=== PATIENT | male | born 1945 | race Two or more races ===

== ENCOUNTER 2017-12-02 07:19 | Emergency (ER) | payer OTHER ==
[2017-12-02 07:52] VITALS: BP 148/91; PULSE 84; TEMP 99; BMI 18.7
--- NOTE | 2017-12-02 08:05 | PDOC ---
History of Present Illness - General Chief Complaint: Cold Symptoms Stated Complaint: DIFFICULTY BREATHING/HEADACHE Time Seen by Provider: 12/02/17 07:55 History Source: Patient - History of Present Illness Initial Comments: 12/02/17 08:04 Patient is a 72 y.o. male with a PMH of NIDDM and HTN who presents to our ED today c/o 2 day h/o non-productive cough, subjective fever and sore throat. Patient denies any associated chest pain, shortness of breath, nausea/vomiting or diarrhea/constipation. Patient further denies any recent travel or sick contacts. Patient notes he received the flu shot in October 2016. Past History - Past Medical History Allergies/Adverse Reactions: Allergies Allergy/AdvReac Type Severity Reaction Status Date / Time No Known Allergies Allergy Verified 12/02/17 07:48 Home Medications: Ambulatory Orders Captopril [Capoten] 25 mg PO DAILY 10/25/12 Hydrochlorothiazide [Hctz] 5 mg PO DAILY 10/25/12 Levofloxacin [Levaquin] 500 mg PO DAILY #7 tablet 10/25/12 Metformin HCl [Glucophage] 1,000 mg PO BID 10/25/12 Acetaminophen [Tylenol .Regular Strength -] 650 mg PO Q6H #30 tablet 12/19/12 Albuterol Sulfate Inhaler - [Ventolin HFA Inhaler -] 1 - 2 inh IH Q4H #1 inhaler 12/19/12 Cefdinir [Omnicef] 300 mg PO BID #20 capsule 12/19/12 Oseltamivir Phosphate [Tamiflu] 75 mg PO BID #10 capsule 12/19/12 COPD: No Diabetes: Yes HTN: Yes Hypercholesterolemia: Yes - Surgical History Abdominal Surgery: Yes (kidney) - Immunization History Immunization Up to Date: Yes - Suicide/Smoking/Psychosocial Hx Smoking Status: No Smoking History: Never smoked Have you smoked in the past 12 months: No Number of Cigarettes Smoked Daily: 0 Information on smoking cessation initiated: No Hx Alcohol Use: No Drug/Substance Use Hx: No Substance Use Type: None Review of Systems - Review of Systems Constitutional: Yes: Chills, Fever HEENTM: No: Blurred Vision, Double Vision Respiratory: Yes: Cough. No: Shortness of Breath, Wheezing, Productive cough Cardiac (ROS): No: Chest Pain, Palpitations ABD/GI: No: Constipated, Diarrhea : No: Burning, Dysuria All Other Systems: Reviewed and Negative *Physical Exam - Vital Signs Last Vital Signs Temp Pulse Resp BP Pulse Ox 99.0 F 84 17 148/91 100 12/02/17 07:49 12/02/17 07:49 12/02/17 07:49 12/02/17 07:49 12/02/17 07:49 - Physical Exam General Appearance: Yes: Nourished, Appropriately Dressed HEENT: positive: EOMI, SAMREEN. negative: Nasal Congestion, Rhinorrhea, TM Dull, TM Erythema Neck: positive: Trachea midline, Supple Respiratory/Chest: positive: Lungs Clear, Normal Breath Sounds. negative: Labored Respiration, Rapid RR Cardiovascular: positive: S1, S2 Gastrointestinal/Abdominal: positive: Normal Bowel Sounds, Soft Extremity: positive: Normal Capillary Refill, Normal Inspection Integumentary: positive: Normal Color, Dry, Warm Neurologic: positive: Fully Oriented, Alert Medical Decision Making - Medical Decision Making 12/02/17 08:07 Patient is a 72 y.o. male who presents with a 2 day h/o sore throat/subjective fever/non-productive cough. Clinical suspicion for viral URI vs. strep pharyngitis vs. influenza. PLAN: 1. Rapid Strep + Rapid Influenza 12/02/17 09:18 Strep (-), Influenza (-). Patient's sign's and symptoms improved with Tylenol. Patient to be discharged home with return precautions and instruction for supportive care. *DC/Admit/Observation/Transfer Diagnosis at time of Disposition: Viral URI - Discharge Dispostion Disposition: HOME Condition at time of disposition: Good - Referrals - Patient Instructions Printed Discharge Instructions: DI for Viral Upper Respiratory Infection -- Adult Additional Instructions: You can use Tylenol for pain control. Please increase your fluid intake and return to the Emergency Department for any new/worsening/concerning symptoms. - Post Discharge Activity
--- NOTE | 2017-12-02 08:17 | PDOC ---
Attending Attestation - Resident Resident Name: HumbleAliyah - ED Attending Attestation I have performed the following: I have examined & evaluated the patient, The case was reviewed & discussed with the resident, I agree w/resident's findings & plan, Exceptions are as noted - HPI HPI: 12/02/17 08:17 72y M hx of htn, HTN, presents with 2 days of cough of whitish sputum associated with nasal congestion, cough productive intermittently of whitihs/ greenish sputum. no associated fever/chills, chest pain, abd pain, n/v/, razo, leg swelling, hemoptysis, diarrhea. no sick contacts or travel history. pts exam is unremarkble pt appears well in no distress lungs cta abd soft nontender card rrr, no m/r/g ext: no edema suspect nasopharyngitis/cold vs flu will ck flu swab supportive management at home. 12/02/17 09:20 rapid strep and flu neg will dc with supportive care at home - Physicial Exam PE: 12/02/17 08:41 see above - Medical Decision Making 12/02/17 08:42 see above
[2017-12-02] MEDS ORDERED: ACETAMINOPHEN 325 MG TABLET (FP) PO ONE (08:25)
[2017-12-02] MEDS ORDERED: ACETAMINOPHEN 325 MG TABLET (FP) ONE (08:28)
== END 2017-12-02 09:53 | disposition home or self-care (01) ==
LOC: JER 07:19
DX: J06.9 Acute upper respiratory infection, unspecified (principal); B97.89 Other viral agents as the cause of diseases classified elsewhere; I10 Essential (primary) hypertension; E78.00 Pure hypercholesterolemia, unspecified; E11.9 Type 2 diabetes mellitus without complications; Z79.84 Long term (current) use of oral hypoglycemic drugs
CPT/HCPCS: 87070; 87430; 87804; 99282-25

== ENCOUNTER 2018-01-22 21:12 | Observation (INO) | payer MEDICARE, OTHER ==
[2018-01-22] MEDS ORDERED: ASPIRIN 81 MG CHEWABLE TABLETS PO ONE (21:28)
--- NOTE | 2018-01-22 21:28 | PDOC ---
History of Present Illness - General Chief Complaint: Chest Pain Stated Complaint: CHEST PAIN Time Seen by Provider: 01/22/18 21:28 History Source: Patient - History of Present Illness Initial Comments: 01/22/18 21:43 71-year-old male with left-sided chest pain since this evening after hearing the bad news about [id number] who is admitted in the hospital. Patient reports that the pain is consistent does not radiate to the left arm denies nausea, diaphoresis, abdominal pain, epigastric pain. Patient also reports that he felt slight dizziness after waking from a nap this evening, now resolved.Patient has a past medical history of hypertension, diabetes, kidney stones. As per patient patient took his blood pressure shortly after hearing the bad news and noted to be reading high. Patient denies suicidal or homicidal ideation 01/22/18 21:46 Past History - Past Medical History Allergies/Adverse Reactions: Allergies Allergy/AdvReac Type Severity Reaction Status Date / Time No Known Allergies Allergy Verified 12/02/17 07:48 Home Medications: Ambulatory Orders Captopril [Capoten] 10 mg PO DAILY 10/25/12 metFORMIN HCL [Glucophage] 1,000 mg PO BID 10/25/12 COPD: No Diabetes: Yes HTN: Yes Hypercholesterolemia: Yes - Surgical History Abdominal Surgery: Yes (kidney) - Immunization History Immunization Up to Date: Yes - Suicide/Smoking/Psychosocial Hx Smoking Status: No Smoking History: Never smoked Have you smoked in the past 12 months: No Number of Cigarettes Smoked Daily: 0 Hx Alcohol Use: No Drug/Substance Use Hx: No Substance Use Type: None Review of Systems - Review of Systems Able to Perform ROS?: Yes Is the patient limited Mosotho proficient: No Constitutional: No: Symptoms Reported, See HPI, Chills, Diaphoresis, Fever, Loss of Appetite, Malaise, Night Sweats, Weakness, Weight Stable, Unintentional Wgt. Loss, Unexplained wgt Loss, Other Cardiac (ROS): Yes: Chest Pain, Lightheadedness. No: Symptoms Reported, See HPI , Edema, Irregular Heart Rate, Palpitations, Syncope, Chest Tightness, Other Neurological: Yes: Dizziness. No: Symptoms reported, See HPI, Headache, Numbness, Paresthesia, Pre-Existing Deficit, Seizure, Tingling, Tremors, Weakness, Unsteady Gait, Ataxia, Other *Physical Exam - Vital Signs Last Vital Signs Temp Pulse Resp BP Pulse Ox 98.3 F 75 16 151/80 100 01/22/18 21:15 01/22/18 21:15 01/22/18 21:15 01/22/18 21:15 01/22/18 21:15 - Physical Exam General Appearance: Yes: Appropriately Dressed Respiratory/Chest: positive: Lungs Clear, Normal Breath Sounds Cardiovascular: positive: Regular Rhythm, Regular Rate Gastrointestinal/Abdominal: positive: Normal Bowel Sounds, Soft Musculoskeletal: positive: Normal Inspection Extremity: positive: Normal Capillary Refill, Normal Inspection, Normal Range of Motion Integumentary: positive: Normal Color, Dry, Warm Neurologic: positive: Fully Oriented, Alert, Normal Mood/Affect Heart Score/ECG Review - History History: Moderately suspicious - Electrocardiogram EKG: Normal - Age Age: >/= 65 - Risk Factors Risk Factors Heart Score: Yes Hx Hypertension, Yes Hx Diabetes Based on the list above the patient has:: 1-2 risk factors - Troponin Troponin: </= normal limit - Score Heart Score - Total: 4 - ECG Intrepretation Rhythm: Regular Rhythm Comment:: 01/22/18 23:17 NSR with sinus arrythmia : HRT 75bpm ED Treatment Course - LABORATORY CBC & Chemistry Diagram: 01/22/18 22:16 01/22/18 22:19 - RADIOLOGY Chest X-Ray Result: No Infiltrates Medical Decision Making - Medical Decision Making 01/22/18 21:48 A: chest pain P: CBC CMP CARDIAC MAGNESIUM EKG CHest xray PA and lateral 01/22/18 23:55 Patient signed out to Dr. Perkins/ Dr. Loza. *DC/Admit/Observation/Transfer Diagnosis at time of Disposition: Chest pain at rest - Discharge Dispostion Admit: Yes - Referrals Referrals: Matt Peters [Primary Care Provider] - - Patient Instructions - Post Discharge Activity
[2018-01-22 21:29] VITALS: BMI 24.7
[2018-01-22] MEDS ORDERED: ASPIRIN 81 MG CHEWABLE TABLETS ONE (21:43)
[2018-01-22 22:45] LABS: BASO % 0.8 % (0-2.0); EOS % 4.4 % (0-4.5); HEMATOCRIT 42.9 % (35.4-49); HEMOGLOBIN 14.3 GM/dL (11.7-16.9); LYMPH % 35.9 % (8-40); MCH 30.4 pg (25.7-33.7); MCHC 33.3 g/dl (32.0-35.9); MEAN CELL VOLUME 91.3 fl (80-96); MEAN PLT VOLUME 9.3 fl (7.5-11.1); MONO % 8.8 % (3.8-10.2); NEUT % 50.1 % (42.8-82.8); PLATELET COUNT 173 K/MM3 (134-434); RDW 13.8 % (11.9-15.9); WHITE BLOOD COUNT 5.5 K/mm3 (4.0-10.0)
[2018-01-22 23:04] LABS: INR 0.99 (0.82-1.09); PROTHROMBIN TIME (PATIENT) 11.2 SEC (9.98-11.88)
[2018-01-22 23:07] LABS: ALBUMIN 3.8 g/dl (3.4-5.0); ANION GAP 4 (8-16); BILIRUBIN,TOTAL 0.3 mg/dL (0.2-1.0); BLOOD UREA NITROGEN 22 mg/dL (7-18); CALCIUM 8.5 mg/dL (8.5-10.1); CHLORIDE 106 mmol/L (98-107); CO2 29 mmol/L (21-32); CREATININE 1.3 mg/dL (0.7-1.3); GLUCOSE,RANDOM 120 mg/dL (74-106); POTASSIUM 4.2 mmol/L (3.5-5.1); SGOT/AST 16 U/L (15-37); SGPT/ALT 26 U/L (12-78); SODIUM 139 mmol/L (136-145); TOT PROT 7.3 g/dl (6.4-8.2)
[2018-01-22 23:09] LABS: ALK PHOS 93 U/L (45-117)
--- NOTE | 2018-01-22 23:52 | HP ---
CHIEF COMPLAINT: L sided chest pain x 1 day PCP: Bo Peters HISTORY OF PRESENT ILLNESS: Pt is a 72 yo M with PMHx of HTN, DM, Kidney stones , presenting with a hx of L sided chest pain. The pain is 8/10, sharp and intermittent, worse with deep inspiration, radiating to the L shoulder. The chest pain is not reproducible and resolves on its own. The pain is not related to exertion, no associated diaphoresis/nausea/vomiting/SOB/cough/palpitations/ syncope or weakness of any part of the body. The pain came on suddenly following emotional news (about the failing health of his [id number] admitted in hospital). Pt had checked his BP following the chest pain and noted an elevation up to 159 systolic compared to his baseline of 120/80. Pt at baseline is active, exercised this am. Has never had similar pain in the past. The daughter by the bed side noted that since he became came a in 2000, he has become increasingly anxious although he has never been diagnosed or managed for anxiety. No PND, orthopnea, early satiety or leg swelling prior. No dysuria or change in bowel habits. Pt is compliant with his medications. 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, worked in [employer] in [employer] for 6 years Smoking: stopped 40 years ago after smoking for 6 years in the 20s Alcohol:social Drugs: never Family History: Allergies No Known Allergies Allergy (Verified 12/02/17 07:48) HOME MEDICATIONS: Home Medications Medication Instructions Recorded Captopril [Capoten] 10 mg PO DAILY 10/25/12 metFORMIN HCL [Glucophage] 1,000 mg PO BID 10/25/12 REVIEW OF SYSTEMS CONSTITUTIONAL: Absent: fever, chills, diaphoresis, generalized weakness, malaise, loss of appetite, weight change HEENT: Absent: rhinorrhea, nasal congestion, throat pain, throat swelling, difficulty swallowing, mouth swelling, ear pain, eye pain, visual changes CARDIOVASCULAR: Absent: chest pain, syncope, palpitations, irregular heart rate, lightheadedness , peripheral edema RESPIRATORY: Absent: cough, shortness of breath, dyspnea with exertion, orthopnea, wheezing, stridor, hemoptysis GASTROINTESTINAL: Absent: abdominal pain, abdominal distension, nausea, vomiting, diarrhea, constipation, melena, hematochezia GENITOURINARY: Absent: dysuria, frequency, urgency, hesitancy, hematuria, flank pain, genital pain MUSCULOSKELETAL: Absent: myalgia, arthralgia, joint swelling, back pain, neck pain SKIN: Absent: rash, itching, pallor HEMATOLOGIC/IMMUNOLOGIC: Absent: easy bleeding, easy bruising, lymphadenopathy, frequent infections ENDOCRINE: Absent: unexplained weight gain, unexplained weight loss, heat intolerance, cold intolerance NEUROLOGIC: Absent: headache, focal weakness or paresthesias, dizziness, unsteady gait, seizure, mental status changes, bladder or bowel incontinence PSYCHIATRIC: Absent: anxiety, depression, suicidal or homicidal ideation, hallucinations. PHYSICAL EXAMINATION Vital Signs - 24 hr 01/22/18 21:15 Temperature 98.3 F Pulse Rate 75 Respiratory 16 Rate Blood Pressure 151/80 O2 Sat by Pulse 100 Oximetry (%) GENERAL: Awake, alert, and fully oriented, in no acute respiratory distress. HEAD: Normal with no signs of trauma. EYES: Pupils equal, round and reactive to light, extraocular movements intact, sclera anicteric, conjunctiva clear. EARS, NOSE, THROAT: Oropharynx clear without exudates. Moist mucous membranes. NECK: Normal range of motion, supple without lymphadenopathy, JVD, or masses. LUNGS: Non tender chest wall. Breath sounds equal, clear to auscultation bilaterally. No wheezes, and no crackles. HEART: Regular rate and rhythm, normal S1 and S2 without murmur, rub or gallop. ABDOMEN: Soft, nontender, not distended, normoactive bowel sounds, no guarding, no rebound, no masses. Absent hepatojugular reflux. MUSCULOSKELETAL: Normal range of motion at all joints. No bony deformities or tenderness. No CVA tenderness. UPPER EXTREMITIES: 2+ pulses, warm, well-perfused. No cyanosis. No clubbing. No peripheral edema. LOWER EXTREMITIES: 2+ pulses, warm, well-perfused. No calf tenderness. No peripheral edema. NEUROLOGICAL: Cranial nerves II-XII intact. Normal speech. gait not observed. No facial droop, 5/5 strength and normal tone globally. PSYCHIATRIC: Cooperative. Laboratory Results - last 24 hr 01/22/18 01/22/18 01/22/18 22:16 22:19 22:19 WBC 5.5 D RBC 4.70 Hgb 14.3 Hct 42.9 MCV 91.3 MCH 30.4 MCHC 33.3 RDW 13.8 Plt Count 173 MPV 9.3 Neutrophils % 50.1 D Lymphocytes % 35.9 D Monocytes % 8.8 Eosinophils % 4.4 Basophils % 0.8 D PT with INR 11.20 INR 0.99 Sodium 139 Potassium 4.2 Chloride 106 D Carbon Dioxide 29 Anion Gap 4 L BUN 22 H Creatinine 1.3 Creat Clearance w eGFR 54.11 Random Glucose 120 H D Calcium 8.5 Magnesium 2.0 Total Bilirubin 0.3 D AST 16 D ALT 26 Alkaline Phosphatase 93 D Creatine Kinase 97 Troponin I < 0.02 Total Protein 7.3 Albumin 3.8 Ambulatory Orders metFORMIN HCL [Glucophage] 1,000 mg PO DAILY 10/25/12 Enalapril Maleate [Vasotec -] 10 mg PO DAILY 01/23/18 Glipizide 10 mg PO 01/23/18 ASSESSMENT/PLAN: Pt is a 72 yo M with PMHx of HTN, DM, Kidney stones, presenting with a hx of L sided chest pain Atypical chest pain: R/O ACS vs anxiety/panic attack suddden, L sided, sharp, non exertional EKG- no acute ischemic changes trops <0.02, trend 6am and noon ECHO Xanax 0.25mg Q6H PRN Lipid profile Hgb A1c Cardiac monitoring ASA 162 given in ED, cont daily ASA 81mg Heart score -4 HTN: Resume enalapril 10mg daily DM: Hold home metformin and glipizide ISS- ACHS BGM-ACHS Diabetic/sodium controlled FEN: No iv fluids indicated at this time Monitor lytes and replete as needed diabetic/sodium restricted diet Dispo: Tele-Obs Visit type - Emergency Visit Emergency Visit: Yes ED Registration Date: 01/22/18 Care time: The patient presented to the Emergency Department on the above date and was hospitalized for further evaluation of their emergent condition. - New Patient This patient is new to me today: Yes Date on this admission: 01/23/18 - Critical Care Critical Care patient: No Hospitalist Screening - Colonoscopy Questionnaire Colonoscopy Questionnaire: Colonoscopy Questionnaire - Patient: 50 - 75 years old and never had a screening colonoscopy: Yes History of colon or rectal polyps, or CA: No History of IBD, Crohn's disease or UC: No History of abdominal radiation therapy as a child: No - Relative: 1 with colon or rectal CA, or polyps at age 60 or younger: No Colon or rectal CA diagnosed at age 45 or younger: No Multiple relatives with colon or rectal CA: No - Outcome: Screening Result: Positive Screen
[2018-01-23] MEDS ORDERED: ALPRAZolam 0.25 MG TABLET PO PRN (00:41)
--- NOTE | 2018-01-23 00:54 | PN ---
Teaching Attending Note Name of Resident: Asya Daugherty ATTENDING PHYSICIAN STATEMENT I saw and evaluated the patient. I reviewed the resident's note and discussed the case with the resident. I agree with the resident's findings and plan as documented. SUBJECTIVE: This is a 72 year old man, former smoker, with a history of HTN, type 2 DM, kidney stones who comes to the ED complaining of left sided chest pain radiating to his left shoulder with no SOB, diaphoresis, palpitations, nausea. Pain started around 7pm while he was sitting watching television, after finding out that his xqadbil-bf-wps is dying. He denies exertional chest pain and had exercised this morning without developing chest pain. OBJECTIVE: Vital Signs Period Temp Pulse Resp BP Sys/Long Pulse Ox Last 24 Hr 98.3 F 75 16 151/80 100-100 HEART: S1S2, RRR LUNGS: Clear ABDOMEN: Soft, non-tender, non-distended, normal BS EXTREMITIES: No edema Laboratory Tests 01/22/18 01/22/18 01/22/18 22:16 22:19 22:19 WBC 5.5 D RBC 4.70 Hgb 14.3 Hct 42.9 MCV 91.3 MCH 30.4 MCHC 33.3 RDW 13.8 Plt Count 173 MPV 9.3 Neutrophils % 50.1 D Lymphocytes % 35.9 D Monocytes % 8.8 Eosinophils % 4.4 Basophils % 0.8 D PT with INR 11.20 INR 0.99 Sodium 139 Potassium 4.2 Chloride 106 D Carbon Dioxide 29 Anion Gap 4 L BUN 22 H Creatinine 1.3 Creat Clearance w eGFR 54.11 Random Glucose 120 H D Calcium 8.5 Magnesium 2.0 Total Bilirubin 0.3 D AST 16 D ALT 26 Alkaline Phosphatase 93 D Creatine Kinase 97 Troponin I < 0.02 Total Protein 7.3 Albumin 3.8 Home Medications Medication Instructions Recorded Captopril [Capoten] 10 mg PO DAILY 10/25/12 metFORMIN HCL [Glucophage] 1,000 mg PO BID 10/25/12 ASSESSMENT AND PLAN: This is a 72 year old man with a history of HTN, type 2 DM, kidney stones, who is a former smoker, who presents to the ED with chest pain at rest. 1. Chest pain - Unlikely cardiac - HEART score 4 - Observe on telemetry - Serial troponins - Echocardiogram - Aspirin 2. HTN - Continue captopril 3. Type 2 DM - Continue metformin, glipizide
[2018-01-23] MEDS ORDERED: HEPARIN NA (PORCINE) 5,000 UNITS/ML 1ML VIAL SQ SCH (06:00)
[2018-01-23] MEDS: INSULIN SLIDING SCALE (NOVOLOG) 1 VIAL SQ SCH ×2 (06:01→12:00)
[2018-01-23 06:39] LABS: BASO % 0.6 % (0-2.0); EOS % 3.8 % (0-4.5); HEMATOCRIT 42.2 % (35.4-49); HEMOGLOBIN 14.3 GM/dL (11.7-16.9); LYMPH % 35.6 % (8-40); MCH 30.9 pg (25.7-33.7); MCHC 33.9 g/dl (32.0-35.9); MEAN CELL VOLUME 91.2 fl (80-96); MEAN PLT VOLUME 9.3 fl (7.5-11.1); MONO % 8.8 % (3.8-10.2); NEUT % 51.2 % (42.8-82.8); PLATELET COUNT 180 K/MM3 (134-434); RBC 4.63 M/mm3 (4.00-5.60); WHITE BLOOD COUNT 5.1 K/mm3 (4.0-10.0)
[2018-01-23 08:01] LABS: CHLORIDE 105 mmol/L (98-107); POTASSIUM 4.2 mmol/L (3.5-5.1); SODIUM 141 mmol/L (136-145)
[2018-01-23 08:14] LABS: ALBUMIN 3.5 g/dl (3.4-5.0); ALK PHOS 70 U/L (45-117); ANION GAP 9 (8-16); BILIRUBIN,TOTAL 0.6 mg/dL (0.2-1.0); BLOOD UREA NITROGEN 18 mg/dL (7-18); CALCIUM 8.5 mg/dL (8.5-10.1); CO2 27 mmol/L (21-32); GLUCOSE,RANDOM 85 mg/dL (74-106); MAGNESIUM 2.2 mg/dL (1.8-2.4); PHOSPHOROUS 2.9 mg/dL (2.5-4.9); SGOT/AST 16 U/L (15-37); SGPT/ALT 28 U/L (12-78); TOT PROT 6.9 g/dl (6.4-8.2)
[2018-01-23 09:14] LABS: CHOLESTEROL 166 mg/dL (50-200); HDL CHOLESTEROL 39 mg/dL (40-60); LDL CHOLESTEROL (ONLY SJRH) 111 mg/dL (5-100); TRIGLYCERIDES 141 mg/dL (35-160)
[2018-01-23] MEDS ORDERED: ASPIRIN COATED 81 MG TABLET.EC PO SCH (10:00)
[2018-01-23] MEDS ORDERED: ENALAPRIL MALEATE 10 MG TABLET (FP) PO SCH (10:00)
[2018-01-23 10:05] VITALS: PULSE 71
--- NOTE | 2018-01-23 12:25 | EKG ---
Test Reason : Blood Pressure : / mmHG Vent. Rate : 075 BPM Atrial Rate : 075 BPM P-R Int : 150 ms QRS Dur : 072 ms QT Int : 368 ms P-R-T Axes : 036 016 024 degrees QTc Int : 410 ms NORMAL SINUS RHYTHM WITH SINUS ARRHYTHMIA NORMAL ECG WHEN COMPARED WITH ECG OF 05-APR-2012 22:27, NO SIGNIFICANT CHANGE WAS FOUND Confirmed by GLENN PISANO MD ([id number]) on 01/23/2018 12:25:32 PM Referred By: Confirmed By:GLENN PISANO MD
--- NOTE | 2018-01-23 13:04 | PN ---
Teaching Attending Note Name of Resident: Munira Christiansen ATTENDING PHYSICIAN STATEMENT I saw and evaluated the patient. I reviewed the resident's note and discussed the case with the resident. I agree with the resident's findings and plan as documented. SUBJECTIVE:no recurrent episodes of CP. states he was very stressed yesterday after news his brother in law may pass away. states he walks very far daily and does not experience CP or SOB during these walks. had negative stress echo 6 years ago. Wants to go home as his brother indeed this AM and he wants to with family. deneis CP, SOB, fever, chills, N/V/C/D OBJECTIVE: Last Vital Signs Temp Pulse Resp BP Pulse Ox 98.7 F 71 16 150/91 96 01/23/18 10:04 01/23/18 10:04 01/23/18 10:04 01/23/18 10:04 01/23/18 08:43 General NAD CV S1 S2 RRR no murmur/rub/gallop Lungs CTA B/L no wheezing/rales/rhonchi ASSESSMENT AND PLAN: 72yo M with PMH DM and HTN with smoking presented to the ER with CP after hearing bad news 1. ACS- likely stress induced. no events on cardiac monitoring. cardiac enzymes neg x2. echo pending. started on asa. recommended statin therapy however he states his PMD informed him he does not need cholesterol medication. explained to him that understanding his family situation and need to be with family. will wait for echo report but wants to go home afterwards. recommend he needs to f/u [facility]D for stress test as he would benefit from one given his risk factors. verbalized agreement. informed him if echo is + will need stress test in the hospital. verbalized understanding and expressed may sign out. will wait for echo report. on asa. 2. HTN- on acei 3. DM-cont home medications 4. DVT ppx- EAM 5. d/c home pending echo report
--- NOTE | 2018-01-23 14:13 | DS ---
Physical Exam: SUBJECTIVE: Patient seen and examined. Pt reports chest pain has spontaneously resolved and has not returned. No events on the athletic monitor overnight. Pt reports feeling stress yesterday after finding out his itrzugr-iy-odv may pass away imminently. In fact, pt did receive the news that his tythypi-yl-sto this morning. Pt denies chest pain, dyspnea on exertion, sob, abdominal pain, fever, chills. OBJECTIVE: Vital Signs Period Temp Pulse Resp BP Sys/Long Pulse Ox Last 24 Hr 98 F-98.7 F 64-89 16-22 118-151/68-91 96-100 PHYSICAL EXAM GENERAL: The patient is awake, alert, and fully oriented, in no acute distress. LUNGS: Breath sounds equal, clear to auscultation bilaterally, no wheezes, no crackles, no accessory muscle use. HEART: Regular rate and rhythm, S1, S2 without murmur, rub or gallop. ABDOMEN: Soft, nontender, nondistended, normoactive bowel sounds, no guarding. EXTREMITIES: Warm, well-perfused, no edema. PSYCH: Normal mood, normal affect. SKIN: Warm, dry, normal turgor, no rashes or lesions noted. LABS Laboratory Results - last 24 hr 01/22/18 01/22/18 01/22/18 22:16 22:19 22:19 WBC 5.5 D RBC 4.70 Hgb 14.3 Hct 42.9 MCV 91.3 MCH 30.4 MCHC 33.3 RDW 13.8 Plt Count 173 MPV 9.3 Neutrophils % 50.1 D Lymphocytes % 35.9 D Monocytes % 8.8 Eosinophils % 4.4 Basophils % 0.8 D PT with INR 11.20 INR 0.99 Sodium 139 Potassium 4.2 Chloride 106 D Carbon Dioxide 29 Anion Gap 4 L BUN 22 H Creatinine 1.3 Creat Clearance w eGFR 54.11 POC Glucometer Random Glucose 120 H D Hemoglobin A1c % Calcium 8.5 Phosphorus Magnesium 2.0 Total Bilirubin 0.3 D AST 16 D ALT 26 Alkaline Phosphatase 93 D Creatine Kinase 97 Troponin I < 0.02 Total Protein 7.3 Albumin 3.8 Triglycerides Cholesterol Total LDL Cholesterol HDL Cholesterol 01/23/18 01/23/18 01/23/18 05:05 05:05 05:05 WBC 5.1 RBC 4.63 Hgb 14.3 Hct 42.2 MCV 91.2 MCH 30.9 MCHC 33.9 RDW 14.0 Plt Count 180 MPV 9.3 Neutrophils % 51.2 Lymphocytes % 35.6 Monocytes % 8.8 Eosinophils % 3.8 Basophils % 0.6 PT with INR INR Sodium 141 Potassium 4.2 Chloride 105 Carbon Dioxide 27 Anion Gap 9 BUN 18 Creatinine 1.0 D Creat Clearance w eGFR > 60 POC Glucometer Random Glucose 85 D Hemoglobin A1c % Calcium 8.5 Phosphorus 2.9 Magnesium 2.2 Total Bilirubin 0.6 D AST 16 ALT 28 Alkaline Phosphatase 70 D Creatine Kinase Troponin I 0.02 Total Protein 6.9 Albumin 3.5 Triglycerides 141 Cholesterol 166 Total LDL Cholesterol 111 H HDL Cholesterol 39 L 01/23/18 01/23/18 01/23/18 05:05 05:59 11:54 WBC RBC Hgb Hct MCV MCH MCHC RDW Plt Count MPV Neutrophils % Lymphocytes % Monocytes % Eosinophils % Basophils % PT with INR INR Sodium Potassium Chloride Carbon Dioxide Anion Gap BUN Creatinine Creat Clearance w eGFR POC Glucometer 88 154 Random Glucose Hemoglobin A1c % 7.0 H Calcium Phosphorus Magnesium Total Bilirubin AST ALT Alkaline Phosphatase Creatine Kinase Troponin I Total Protein Albumin Triglycerides Cholesterol Total LDL Cholesterol HDL Cholesterol 01/23/18 12:30 WBC RBC Hgb Hct MCV MCH MCHC RDW Plt Count MPV Neutrophils % Lymphocytes % Monocytes % Eosinophils % Basophils % PT with INR INR Sodium Potassium Chloride Carbon Dioxide Anion Gap BUN Creatinine Creat Clearance w eGFR POC Glucometer Random Glucose Hemoglobin A1c % Calcium Phosphorus Magnesium Total Bilirubin AST ALT Alkaline Phosphatase Creatine Kinase 78 Troponin I 0.03 D Total Protein Albumin Triglycerides Cholesterol Total LDL Cholesterol HDL Cholesterol HOSPITAL COURSE: Date of Admission:01/22/18 Date of Discharge: 01/23/18 72M with PMH of dm, htn, and remote hx of smoking, presents with chest pain after hearing bad news, admitted to Telemetry Obs for ACS r/o. Atypical chest pain likely stress induced. Cholesterol medication recommended based on lipid panel results, but pt reports he has already discussed this with his PCP and has decided against adding a cholesterol medication at this time. Pt can follow up for stress Echo as outpatient. 01/22/18 CXR -> no acute infiltrate, pulmonary vascular congestion or pleural effusion. 01/23/18 Echo -> Left ventricle with normal size, thickness and function. Right ventricle with normal size and function. Trace MR noted. Pt stable for discharge home. Minutes to complete discharge: 35 Discharge Summary Reason For Visit: CHEST PAIN AT REST Current Active Problems Chest pain at rest (Acute) Condition: Improved - Instructions Diet, Activity, Other Instructions: You were treated for atypical chest pain. Changes to your Medications: - Take Aspirin 81mg once daily. - Continue to take your home medications as prescribed. Continue to eat a diabetic, low sodium diet. Increase physical activity as tolerated. Follow-ups: - schedule an appointment with your Primary Care Physician (Dr. Peters) in 1 week. Discuss with PCP about adding a medication for your cholesterol. Check your blood sugar 4 times daily (before meals and before bed). Keep a log of these values and bring this log to your next PCP appointment. If you see a value >400, <60, or consistently >200 call your PCP. Please return to the hospital immediately if you experience persistent or increased chest pain, palpitations, difficulty breathing, lightheadedness, dizziness, fever, chills, or for any medical emergency. Referrals: Matt Peters [Primary Care Provider] - 1 Week Disposition: HOME - Home Medications Comprehensive Discharge Medication List: Ambulatory Orders metFORMIN HCL [Glucophage] 1,000 mg PO DAILY 10/25/12 Aspirin Coated [Ecotrin -] 81 mg PO DAILY tablet.ec 01/23/18 Enalapril Maleate [Vasotec -] 10 mg PO DAILY 01/23/18 Glipizide 10 mg PO 01/23/18 This patient is new to me today: Yes Date on this admission: 01/23/18 Emergency Visit: Yes ED Registration Date: 01/22/18 Care time: The patient presented to the Emergency Department on the above date and was hospitalized for further evaluation of their emergent condition. Critical Care patient: No - Discharge Referral Referred to [facility] Med P.C.: No
[2018-01-23 15:09] VITALS: BP 116/69; TEMP 97.3
== END 2018-01-23 15:43 | disposition home or self-care (01) ==
LOC: JER 21:12 → JERBED 23:56 → UNDOADMOB 23:59 → JERBED 23:59 → J4W 01-23 01:59
PROVIDERS: ADMIT Internal Medicine; ATTEND Internal Medicine
PROC: 3E013GC Introduction of Other Therapeutic Substance into Subcutaneous Tissue, Percutaneous Approach (ICD-10-PCS; principal; 2018-01-22)
DX: R07.9 Chest pain, unspecified (principal); I10 Essential (primary) hypertension; E11.9 Type 2 diabetes mellitus without complications; E78.00 Pure hypercholesterolemia, unspecified; Z79.84 Long term (current) use of oral hypoglycemic drugs
CPT/HCPCS: 36415; 71046-TC-FY; 80053; 80061; 82550; 82962; 83036; 83721; 83735; 84100; 84484; 85025; 85610; 93005; 93010; 93306-TC; 96372; 99285-25; G0378; J1644

== ENCOUNTER 2018-02-26 09:45 | Emergency (ER) | payer MEDICARE, OTHER ==
[2018-02-26 09:59] VITALS: BP 160/93; PULSE 95; TEMP 97.7; BMI 30.1
--- NOTE | 2018-02-26 11:19 | PDOC ---
History of Present Illness - General Chief Complaint: Laceration Stated Complaint: LT FINGER LACERATION Time Seen by Provider: 02/26/18 10:25 History Source: Patient Exam Limitations: No Limitations - History of Present Illness Initial Comments: 02/26/18 12:12 CHIEF COMPLAINT: Laceration to the dorsum of the left third finger HISTORY OF PRESENT ILLNESS: Patient is a 72-year-old male with history of hypertension, [id number] diabetes, reports this morning was cutting chicken and thought he was cutting a piece of chicken and cut his own finger instead. Patient with increased bleeding to area. Pressure is applied with pressure dressing. He shouldn't denies any chest pain or shortness of breath, no dizziness. Timing/Duration: reports: just prior to arrival Severity: Yes: moderate Location: reports: extremities Past History - Past Medical History Allergies/Adverse Reactions: Allergies Allergy/AdvReac Type Severity Reaction Status Date / Time No Known Allergies Allergy Verified 02/26/18 09:47 Home Medications: Ambulatory Orders metFORMIN HCL [Glucophage] 1,000 mg PO DAILY 10/25/12 Aspirin Coated [Ecotrin -] 81 mg PO DAILY tablet.ec 01/23/18 Enalapril Maleate [Vasotec -] 10 mg PO DAILY 01/23/18 Glipizide 10 mg PO BID 01/23/18 COPD: No DVT: No Diabetes: Yes HTN: Yes Hypercholesterolemia: Yes - Surgical History Abdominal Surgery: Yes (kidney) Orthopedic Surgery: Yes - Immunization History Immunization Up to Date: Yes - Suicide/Smoking/Psychosocial Hx Smoking Status: No Smoking History: Never smoked Have you smoked in the past 12 months: No Number of Cigarettes Smoked Daily: 0 Information on smoking cessation initiated: No Hx Alcohol Use: No Drug/Substance Use Hx: No Substance Use Type: None Hx Substance Use Treatment: No Review of Systems - Review of Systems Constitutional: No: Symptoms Reported HEENTM: No: Symptoms Reported Respiratory: No: Symptoms reported Cardiac (ROS): No: Symptoms Reported ABD/GI: No: Symptoms Reported : No: Symptoms Reported Musculoskeletal: No: Joint Pain, Joint Swelling, Muscle Pain, Muscle Weakness, Neck Pain, Joint Stiffness Integumentary: Yes: Other (4 cm laceration to the dorsum of the left third finger.) Neurological: No: Symptoms reported, Paresthesia, Tingling, Tremors All Other Systems: Reviewed and Negative *Physical Exam - Vital Signs Last Vital Signs Temp Pulse Resp BP Pulse Ox 97.7 F 95 H 18 160/93 100 02/26/18 09:50 02/26/18 09:50 02/26/18 09:50 02/26/18 09:50 02/26/18 09:50 - Physical Exam General Appearance: Yes: Appropriately Dressed. No: Apparent Distress Neck: negative: Tender lateral, Tender midline Respiratory/Chest: positive: Lungs Clear, Normal Breath Sounds. negative: Respiratory Distress, Accessory Muscle Use Cardiovascular: positive: Regular Rhythm, Regular Rate Lymphatic: negative: Adenopathy Musculoskeletal: negative: Decreased Range of Motion Extremity: positive: Normal Capillary Refill, Normal Range of Motion, Tender, Swelling, Other (4 cm laceration to the base of the left third finger, palmar aspect.) Integumentary: positive: Other (4 cm laceration to the base of the palmar surface left third finger.) Neurologic: positive: Alert, Normal Mood/Affect, Normal Response, Motor Strength 5/5 Procedures - Laceration/Wound Repair Left Dorsal Finger 3rd digit Wound Length: 2.6 to 5.0 cm Wound Explored: clean Wound's Depth, Shape: linear Irrigated w/ Saline: Yes Betadine Prep: Yes Anesthesia: 1% Lidocaine Amount of Anesthetic (ccs): 3 (digital block performed with good result) Wound Repaired With: Sutures Suture Size/Type: 5:0 Number of Sutures: 7 Layer Closure: No Splint Applied: Yes Progress: 02/26/18 12:17 Patient tolerated procedure well. 02/26/18 12:17 Medical Decision Making - Medical Decision Making 02/26/18 12:17 A/P: Patient with laceration to left third digit, area cleansed sterilely prepped, see procedure note. Bacitracin and Xeroform applied, dressing applied, no bleeding noted after repair. Instructions for care given to patient. He verbalized understanding will follow-up as instructed. *DC/Admit/Observation/Transfer Diagnosis at time of Disposition: Finger laceration Qualifiers: Encounter type: initial encounter Finger: middle finger Damage to nail status: without damage Foreign body presence: without foreign body Laterality: left Qualified Code(s): S61.213A - Laceration without foreign body of left middle finger without damage to nail, initial encounter - Discharge Dispostion Disposition: HOME Condition at time of disposition: Stable Admit: No - Referrals Referrals: Matt Peters [Primary Care Provider] - - Patient Instructions Printed Discharge Instructions: DI for Laceration Repair Additional Instructions: Keep area clean dry and intact Keep dressing on until tomorrow If any increased bleeding through the dressing return immediately to emergency department Keep area clean dry and intact bacitracin x3 days, then let it dry out Please return on 03/08/18 for suture removal. Please return immediately to emergency department with any increased redness, swelling, signs of infection 2 Tylenol every 8 hours as needed for pain, Motrin for severe pain 2 tablets every 6 hours. Mantenga el adrián limpia, seca e intacta Sigue vistindote hasta maana Si aumenta el sangrado a travs del vendaje, regrese inmediatamente al departamento de emergencia. Mantenga el adrián limpia, seca e intacta, con bacitracina x 3 damian, luego djela secar Regrese el 03/08/18 para la eliminacin de suturas. Por favor regrese inmediatamente al servicio de urgencias con cualquier aumento de enrojecimiento, hinchazn, signos de infeccin 2 Tylenol cada 8 horas segn sea necesario para el dolor, Motrin para el dolor joni 2 tabletas cada 6 horas. - Post Discharge Activity
== END 2018-02-26 11:21 | disposition home or self-care (01) ==
LOC: JER 09:45 → JERFT 09:45
PROC: 0HQGXZZ Repair Left Hand Skin, External Approach (ICD-10-PCS; principal; 2018-02-26)
DX: S61.213A Laceration without foreign body of left middle finger without damage to nail, initial encounter (principal); W26.0XXA Contact with knife, initial encounter; Y93.G3 Activity, cooking and baking; Y92.000 Kitchen of unspecified non-institutional (private) residence as the place of occurrence of the external cause; E11.9 Type 2 diabetes mellitus without complications; I10 Essential (primary) hypertension; E78.00 Pure hypercholesterolemia, unspecified
CPT/HCPCS: 12002; 99282-25